=== PATIENT | female | born 1945 ===

== ENCOUNTER → 2017-08-06 | Outpatient (CLI) | payer OTHER ==
[~2017-08-06] VITALS: Ht 152.4 cm; Wt 46.3 kg
== END | disposition home or self-care (01) ==
LOC: OFIC 805 08:00
DX: H90.3 Sensorineural hearing loss, bilateral (principal); H61.23 Impacted cerumen, bilateral; J31.0 Chronic rhinitis; H69.83 Other specified disorders of Eustachian tube, bilateral

== ENCOUNTER 2018-01-31 10:31 | Outpatient (CLI) | payer OTHER | END 2018-01-31 11:00 | disposition home or self-care (01) | LOC: NUCLEAR 10:31 | DX: I87.2 Venous insufficiency (chronic) (peripheral) (principal) ==

== ENCOUNTER → 2018-02-09 | Outpatient (CLI) | payer OTHER | END | disposition home or self-care (01) | LOC: NUCLEAR 02-01 10:00 | DX: I73.9 Peripheral vascular disease, unspecified (principal); E11.51 Type 2 diabetes mellitus with diabetic peripheral angiopathy without gangrene; I70.213 Atherosclerosis of native arteries of extremities with intermittent claudication, bilateral legs ==